=== PATIENT | male | born 1950 | race Caucasian/White ===

== ENCOUNTER 2021-02-28 08:02 | Outpatient (CLI) | payer MEDICARE, BC | END 2021-02-28 08:03 | disposition home or self-care (01) | LOC: BICCT 08:02 | PROVIDERS: ATTEND Nurse Practitioner Family | DX: Z12.2 Encounter for screening for malignant neoplasm of respiratory organs (principal); R06.00 Dyspnea, unspecified; I25.10 Atherosclerotic heart disease of native coronary artery without angina pectoris; Z87.891 Personal history of nicotine dependence | CPT/HCPCS: 71271 ==

== ENCOUNTER 2021-08-26 08:54 | Outpatient (CLI) | payer MEDICARE, BC ==
[2021-08-26] MEDS ORDERED: Iopamidol-370 76% 500 ML 1 ML ONE (09:36)
== END 2021-08-26 08:55 | disposition home or self-care (01) ==
LOC: BICCT 08:54
PROVIDERS: ATTEND Nurse Practitioner Family
DX: E27.8 Other specified disorders of adrenal gland (principal); N28.89 Other specified disorders of kidney and ureter; D35.02 Benign neoplasm of left adrenal gland
CPT/HCPCS: 74170; 82565; Q9967

== ENCOUNTER 2021-12-11 10:55 | Outpatient (CLI) | payer MEDICARE, BC | END 2021-12-11 10:56 | disposition home or self-care (01) | LOC: CT 10:55 | PROVIDERS: ATTEND Nurse Practitioner Family | DX: E27.8 Other specified disorders of adrenal gland (principal); R93.89 Abnormal findings on diagnostic imaging of other specified body structures; D35.02 Benign neoplasm of left adrenal gland | CPT/HCPCS: 74170; 82565 ==

== ENCOUNTER 2022-09-30 13:33 | Outpatient (CLI) | payer MEDICARE, BC ==
[2022-09-30 14:53] LABS: #Basophils 0.1 10x3/uL (0.0-0.2); #Eosinphils 0.6 10x3/uL (0.0-0.5); #Monocytes 1.1 10x3/uL (0.0-1.1); #Neutrophils 6.7 10x3/uL (1.5-8.4); %Basophils 0.7 % (0.0-2.0); %Eosinophils 5.6 % (0.0-6.0); %Lymphocytes 14.5 % (18.0-47.0); %Monocytes 11.1 % (0.0-10.0); %Neutrophils 67.6 % (40.0-75.0); Hemoglobin 15.3 g/dL (13.5-17.5); Mean Corpuscular HGB CONC 33.7 g/dL (32.0-36.0); Mean Corpuscular Hemoglobin 30.1 pg (27.0-33.0); Mean Corpuscular Volume 89.4 fl (81.2-95.1); Mean Platelet Volume 11.6 fl (7.4-10.4); Platelet Count 300 10x3/uL (150-450); RBC Distribution Width 14.3 % (11.5-14.5); Red Blood Cell (RBC) Count 5.08 10x6/uL (4.32-5.72); White Blood Cell (WBC) Count 9.9 10x3/uL (3.5-10.5)
[2022-09-30 15:28] LABS: Anion Gap 14 mmol/L (10-20); BUN (Urea Nitrogen) 17 mg/dL (8.4-25.7); Calc. Creatinine Clearance 0 mL/min (70-130); Calcium 10.3 mg/dL (7.8-10.44); Carbon Dioxide 27 mmol/L (23-31); Chloride 105 mmol/L (98-107); Estimated GFR 68; Glucose 100 mg/dL (83-110); Potassium 4.3 mmol/L (3.5-5.1); Sodium 142 mmol/L (136-145)
== END 2022-09-30 13:34 | disposition home or self-care (01) ==
LOC: LABBT 13:33
PROVIDERS: ATTEND Specialist
DX: Z01.812 Encounter for preprocedural laboratory examination (principal); K42.9 Umbilical hernia without obstruction or gangrene; I25.10 Atherosclerotic heart disease of native coronary artery without angina pectoris; E66.01 Morbid (severe) obesity due to excess calories; Z79.01 Long term (current) use of anticoagulants
CPT/HCPCS: 80048; 85025

== ENCOUNTER 2022-10-02 05:47 | Day surgery (SDC) | payer MEDICARE, BC ==
[2022-10-01 14:13] VITALS: BMI 42.7
[2022-10-02] MEDS ORDERED: Ketorolac Tromethamine 30 MG/ML VIAL ONE (06:21)
[2022-10-02] MEDS ORDERED: Gabapentin 300 MG CAP ONE (06:21)
[2022-10-02] MEDS ORDERED: Sodium Chloride 0.9% 100 ML ONE (06:21)
[2022-10-02] MEDS ORDERED: CEFAZOLIN 2 GM VIAL ONE (06:21)
[2022-10-02] MEDS ORDERED: Acetaminophen 500 MG TAB ONE (06:21)
[2022-10-02] MEDS ORDERED: fentaNYL PF 100 MCG/2 ML SYRINGE ONE (06:47)
[2022-10-02] MEDS ORDERED: Tamsulosin HCl 0.4 MG CAP ONE (07:20)
[2022-10-02 07:51] LABS: SARS-CoV-2 NAA Rapid Test Not Detected (NotDetected)
[2022-10-02] MEDS ORDERED: hydrALAZINE 20 MG/ML VIAL ONE (08:05)
[2022-10-02] MEDS ORDERED: PROPOFOL 200 MG/20 ML VIAL ONE (08:16)
[2022-10-02] MEDS ORDERED: Ondansetron PF 4 MG/2 ML Vial ONE (08:16)
[2022-10-02] MEDS ORDERED: NEOSTIGMINE 3 MG/3 ML SYR 3 MG/3 ML SYRINGE ONE (08:16)
[2022-10-02] MEDS ORDERED: Rocuronium Bromide 10 MG/ML (10ML VIAL) ONE (08:16)
[2022-10-02] MEDS ORDERED: Dexamethasone 20 MG/5 ML VIAL ONE (08:16)
[2022-10-02] MEDS ORDERED: Bupivacaine/Epinephrine 0.25% 30 ML VIAL ONE (08:20)
== END 2022-10-02 11:10 | disposition home or self-care (01) ==
LOC: SDC 05:47
PROVIDERS: ATTEND Specialist
PROC: 0WUF4JZ Supplement Abdominal Wall with Synthetic Substitute, Percutaneous Endoscopic Approach (ICD-10-PCS; principal; 2022-10-02)
PROC: 8E0W4CZ Robotic Assisted Procedure of Trunk Region, Percutaneous Endoscopic Approach (ICD-10-PCS; 2022-10-02)
DX: K42.9 Umbilical hernia without obstruction or gangrene (principal); I10 Essential (primary) hypertension; I25.10 Atherosclerotic heart disease of native coronary artery without angina pectoris; I48.91 Unspecified atrial fibrillation; E03.9 Hypothyroidism, unspecified; E66.01 Morbid (severe) obesity due to excess calories; Z68.41 Body mass index [BMI] 40.0-44.9, adult; Z86.16 Personal history of COVID-19; Z87.891 Personal history of nicotine dependence; Z79.01 Long term (current) use of anticoagulants; Z79.02 Long term (current) use of antithrombotics/antiplatelets; Z79.890 Hormone replacement therapy; Z79.899 Other long term (current) drug therapy; Z88.8 Allergy status to other drugs, medicaments and biological substances; Z20.822 Contact with and (suspected) exposure to COVID-19
CPT/HCPCS: 49652; C1781; U0002; J0360; J1885; J3490

== ENCOUNTER 2023-10-04 10:40 | Emergency (ER) | payer MEDICARE, BC ==
[2023-10-04 11:53] LABS: #Basophils 0.1 thou/uL (0.0-0.2); #Eosinphils 0.4 thou/uL (0.0-0.7); #Monocytes 1.1 thou/uL (0.11-0.59); #Neutrophils 8.4 thou/uL (1.40-6.50); %Basophils 0.7 % (0.0-1.0); %Eosinophils 3.1 % (0.0-10.0); %Lymphocytes 14.7 % (21.0-51.0); %Monocytes 9.4 % (0.0-10.0); %Neutrophils 71.4 % (42.0-75.0); Hematocrit 50.9 % (42.0-52.0); Hemoglobin 17.1 g/dL (14.0-18.0); Mean Corpuscular HGB CONC 33.6 g/dL (32.0-36.0); Mean Corpuscular Hemoglobin 31.2 pg (27.0-31.0); Mean Corpuscular Volume 92.9 fl (78.0-98.0); Platelet Count 259 10x3/uL (130-400); RBC Distribution Width 13.4 % (11.5-14.5); Red Blood Cell (RBC) Count 5.48 mill/uL (4.70-6.10); White Blood Cell (WBC) Count 11.7 10x3/uL (4.8-10.8)
[2023-10-04] MEDS ORDERED: Metoprolol Tartrate 25 MG TAB ONE (12:06)
[2023-10-04 12:21] LABS: ALT (SGPT) 19 U/L (8-55); AST (SGOT) 15 U/L (5-34); Albumin 4.4 g/dL (3.4-4.8); Alkaline Phosphatase 85 U/L (40-110); Anion Gap 14 mmol/L (10-20); BUN (Urea Nitrogen) 14 mg/dL (8.4-25.7); Bilirubin, Total 0.6 mg/dL (0.2-1.2); Calc. Creatinine Clearance 0 mL/min (70-130); Calcium 9.6 mg/dL (7.8-10.44); Carbon Dioxide 23 mmol/L (23-31); Chloride 104 mmol/L (98-107); Estimated GFR 74; Globulin 3.1 g/dL (2.4-3.5); Glucose 101 mg/dL (83-110); Potassium 4.1 mmol/L (3.5-5.1); Protein, Total 7.5 g/dL (5.8-8.1); Sodium 137 mmol/L (136-145)
[2023-10-04 12:22] LABS: Troponin I Less than 0.010 ng/mL (< 0.028)
== END 2023-10-04 14:46 | disposition home or self-care (01) ==
LOC: ERS 10:40
DX: I10 Essential (primary) hypertension (principal); F17.210 Nicotine dependence, cigarettes, uncomplicated; E03.9 Hypothyroidism, unspecified; I48.91 Unspecified atrial fibrillation; Z79.82 Long term (current) use of aspirin; Z79.899 Other long term (current) drug therapy; Z79.890 Hormone replacement therapy
CPT/HCPCS: 36415; 71045; 80053; 84484; 85025; 93005

== ENCOUNTER 2024-08-08 07:01 | Day surgery (SDC) | payer MEDICARE, BC ==
[2024-08-07 13:16] VITALS: BMI 43.7
[~2024-08-08 07:01] MED LIST: EPINEPHrine 0.3 MG in Ophthalmic Irrigation Solution 500 ML IRR SCH
[2024-08-08] MEDS ORDERED: PHENYLephrine 2.5% Ophth Soln 15 ml Bottle ONE (08:15)
[2024-08-08] MEDS ORDERED: Cyclopentolate 1% Opth Drop 2 ML BOT ONE (08:15)
[2024-08-08] MEDS ORDERED: fentaNYL 50 mcg/mL 1 mL Vial ONE (09:02)
[2024-08-08] MEDS ORDERED: PROPOFOL 20 ML ONE (09:02)
[2024-08-08] MEDS ORDERED: Lidocaine 1% PF 5 ML VIAL ONE ×2 (09:04→09:36)
[2024-08-08] MEDS ORDERED: Triamcinolone 40 MG/ML VIAL ONE (09:36)
[2024-08-08] MEDS ORDERED: Maxitrol 0.1% Opth Oint 3.5 GM TUBE ONE (09:36)
[2024-08-08] MEDS ORDERED: Lidocaine 4% PF 5 ML AMP ONE (09:36)
[2024-08-08] MEDS ORDERED: Bupivacaine 0.75% 10 ML VIAL ONE (09:36)
[2024-08-08] MEDS ORDERED: CEFAZOLIN 1 GM VIAL ONE (09:36)
[2024-08-08] MEDS ORDERED: Rocuronium Bromide 10 MG/ML (10ML VIAL) ONE (09:36)
[2024-08-08] MEDS ORDERED: Ondansetron PF 4 MG/2 ML Vial ONE (09:47)
[2024-08-08] MEDS ORDERED: Dexamethasone 4 mg/ml Vial ONE (09:47)
[2024-08-08] MEDS ORDERED: Famotidine/PF 20 mg/2ml Vial ONE (09:48)
[2024-08-08] MEDS ORDERED: SUGAMMADEX SODIUM 200 MG/2 ML VIAL ONE (12:26)
== END 2024-08-08 14:06 | disposition home or self-care (01) ==
LOC: SDC 07:01
PROVIDERS: ATTEND Ophthalmology Retina Specialist
PROC: 08T53ZZ Resection of Left Vitreous, Percutaneous Approach (ICD-10-PCS; principal; 2024-08-08)
DX: H43.12 Vitreous hemorrhage, left eye (principal); H35.62 Retinal hemorrhage, left eye; H34.9 Unspecified retinal vascular occlusion; H33.42 Traction detachment of retina, left eye
CPT/HCPCS: 67039; J0171; J0690; J1100; J2405; J2704; J3010; J3301; J3490 ×2; C1814